=== PATIENT | male | born 1980 | race Caucasian/White ===

== ENCOUNTER 2023-09-04 20:29 | Emergency (ER) | payer OTHER, SELFPAY ==
[2023-09-04] VITALS (21 sets, daily range): BP systolic 130–141; BP diastolic 92–107; PULSE 82–105; TEMP 36.7; O2SAT 98; BMI 38.0
--- NOTE | 2023-09-04 21:19 | ECG_ITS ---
The [facility] Test Date: 2023-09-04 Pat Name: UBALDO KIM Department: Room: - Gender: Male Can Patcher: : 1980 Requested By: MARILYN EDWARDS Order Number: [id number] Reading MD: NICOLE LIMON Measurements Intervals [place] Rate: 100 P: 6 WV: 158 QRS: 14 QRSD: 98 T: -1 QT: 352 QTc: 409 Interpretive Statements 1120 Sinus tachycardia 9140 abnormal rhythm ECG Compared to ECG 06/09/2021 07:01:11 No significant changes Electronically Signed On 09-04-2023 22:41:22 EDT by NICOLE LIMON
--- NOTE | 2023-09-04 21:20 | ED_ITS ---
Documented by User: HAYDER García 09/04/23 21:26 HPI HPI - General Adult General Chief complaint: Arrhythmia/Palpitations Stated complaint: ELECTRIC SHOCK Time Seen by Provider: 09/04/23 21:09 Source: patient Mode of arrival: walk-in History of Present Illness HPI narrative: Patient is a 43-year-old male who presents to the emergency department for a work-related injury. He states he brushed his right index finger against a plug-in at work and sustained a shock to the right finger from a 480 V outlet. He states at the time of the electric shock he felt mild pressure in his chest but he was driving home from work,He felt fluttering in his chest, diaphoretic and weak. He has not had any syncope or falls. He reveals that he had a pulmonary embolism about 10 years ago secondary to Chantix. He denies tobacco abuse at this time. He had no other associated injuries. No medications prior to arrival Related Data Allergies Allergy/AdvReac Type Severity Reaction Status Date / Time varenicline [From Chantix] Allergy Severe Verified 09/04/23 21:03 Opioid HPI Opioid Management Most Recent Opioid Data: No Data to Display Review of Systems ROS Constitutional Denies: fever or chills Ears, nose, mouth, and throat Denies: throat pain or nasal congestion Cardiovascular Reports: chest pain Respiratory Denies: shortness of breath or cough Gastrointestinal Denies: abdominal pain, nausea or vomiting Integumentary/Breast Denies: rash Neurological Denies: headache Hematologic/Lymphatic Denies: easy bruising or easy bleeding Exam Narrative Exam Narrative: Gen.: Awake, alert, in no distress Head: Normocephalic, atraumatic ENT: Moist mucous membranes Respiratory: No respiratory distress, lungs clear bilaterally Cardio: Regular rate and rhythm Extremities: Moves extremities equally, Superficial erythematous burn to the dorsum of the right index finger. No open wounds, necrotic tissue or circumferential swelling. Normal range of motion. 2+ right radial pulse Psych: Normal mood and affect Neuro: No focal neuro deficit Skin: Warm, dry, intact Constitutional Vital Signs, click to edit/add: Last Vital Signs Temp 98.0 F 09/04/23 20:55 Pulse 89 09/04/23 20:55 Resp 16 09/04/23 20:55 BP 130/92 H 09/04/23 20:55 Pulse Ox 98 09/04/23 20:55 O2 Del Method Room Air 09/04/23 20:55 Course Vital Signs Vital signs: Vital Signs Temperature 98.0 F 09/04/23 20:55 Pulse Rate 89 09/04/23 20:55 Respiratory Rate 16 09/04/23 20:55 Blood Pressure 130/92 H 09/04/23 20:55 Pulse Oximetry 98 09/04/23 20:55 Oxygen Delivery Method Room Air 09/04/23 20:55 Temperature 98.0 F 09/04/23 20:55 Pulse Rate 89 09/04/23 20:55 Respiratory Rate 16 09/04/23 20:55 Blood Pressure 130/92 H 09/04/23 20:55 Pulse Oximetry 98 09/04/23 20:55 Oxygen Delivery Method Room Air 09/04/23 20:55 Medical Decision Making MDM Narrative Medical decision making narrative: 2124: Patient with stable vital signs on evaluation, he is in normal sinus rhythm. Due to his history of PE and symptoms, IV was established with lab draw. D-dimer is pending, imaging of the chest will be determined by this result. Case is turned over to attending physician at this time. He is hemodynamically stable at time of my evaluation. Medical Records Medical records reviewed: Yes I reviewed the patient's medical records Lab Data Lab results reviewed: Yes I reviewed the patient's lab results Labs: Lab Results 09/04/23 Range/Units 21:37 WBC 6.4 (4.0-11.0) 10^3/uL RBC 4.69 L (4.70-6.10) 10^6/uL Hgb 13.9 L (14.0-18.0) g/dL Hct 40.6 L (42.0-54.0) % MCV 86.6 (80.0-94.0) fL MCH 29.6 (25.9-34.0) pg MCHC 34.2 (29.9-35.2) g/dL RDW 12.6 (11.0-15.0) % Plt Count 215 (150-450) 10^3/uL MPV 9.7 (9.5-13.5) fL Neut % (Auto) 34.2 L (43.0-75.0) % Lymph % (Auto) 51.9 (20.5-60.0) % [place] % (Auto) 10.0 (1.7-12.0) % Eos % (Auto) 3.1 (0.9-7.0) % Baso % (Auto) 0.6 (0.2-2.0) % Neut # (Auto) 2.2 (1.4-6.5) 10^3/uL Lymph # (Auto) 3.3 (1.2-3.8) 10^3/uL [place] # (Auto) 0.6 (0.3-0.8) 10^3/uL Eos # (Auto) 0.2 (0.0-0.7) 10^3/uL Baso # (Auto) 0.0 (0.0-0.1) 10^3/uL Abs Immat Gran (auto) 0.01 (0.00-0.03) 10^3/uL Imm/Tot Granulo (auto) 0.2 (0.0-0.5) % PT 10.5 (9.0-11.6) sec INR 0.99 D-Dimer 0.40 (<=0.59) mg/L FEU Sodium 142 (136-145) mmol/L Potassium 3.6 (3.5-5.1) mmol/L Chloride 106 (98-107) mmol/L Carbon Dioxide 26.9 (21.0-32.0) mmol/L Anion Gap 12.7 BUN 18.0 (7.0-18.0) mg/dL Creatinine 1.01 (0.70-1.30) mg/dL Est GFR ( Amer) >60 (>=60) Est GFR (Non-Af Amer) >60 (>=60) BUN/Creatinine Ratio 17.8 Glucose 89 (74-106) mg/dL Lactate 1.1 (0.4-2.0) mmol/L Calcium 9.1 (8.5-10.1) mg/dL Total Bilirubin 0.3 (0.2-1.0) mg/dL AST 18 (15-37) U/L ALT 41 (16-63) U/L Alkaline Phosphatase 74 (46-116) U/L Total Creatine Kinase 136 (39-308) U/L Troponin I High Sens 5.1 (4.0-76.1) pg/mL NT-Pro-B Natriuret Pep 17.0 (<=450.0) pg/mL Total Protein 7.4 (6.4-8.2) g/dL Albumin 3.7 (3.4-5.0) g/dL Globulin 3.7 g/dL Albumin/Globulin Ratio 1.0 TSH 3.615 (0.358-3.740) uIU/mL ECG Data Attestation: I personally reviewed and interpreted this ECG as follows: (Sinus tachycardia at a rate of 100, no acute ST elevation or ectopy. EKG reviewed by attending physician) Discharge Plan Discharge Stand Alone Forms: Portal Instructions Chief Complaint: Arrhythmia/Palpitations Clinical Impression: Palpitations, Electric shock Patient Disposition: Home, Self-Care Time of Disposition Decision: 00:15 Condition: Good Print Language: Citizen Of [place] Instructions: Heart Palpitations (ED), Electrical Gruber in Adults (ED) Additional Instructions: Use ice, tylenol and motrin as needed for pain. Return to the ER as needed for ongoing palpitations, shortness of breath, syncope or any concerns. Referrals: Delores Gore NP [Primary Care Provider] - 1 week Documented by User: Jenn Luciano MD 09/05/23 00:16 HPI HPI - General Adult General Chief complaint: Arrhythmia/Palpitations Stated complaint: ELECTRIC SHOCK Time Seen by Provider: 09/04/23 21:09 Related Data Allergies Allergy/AdvReac Type Severity Reaction Status Date / Time varenicline [From Chantix] Allergy Severe Verified 09/04/23 21:03 Opioid HPI Opioid Management Most Recent Opioid Data: No Data to Display Exam Constitutional Vital Signs, click to edit/add: Last Vital Signs Temp 98.0 F 09/04/23 20:55 Pulse 89 09/04/23 20:55 Resp 16 09/04/23 20:55 BP 130/92 H 09/04/23 20:55 Pulse Ox 98 09/04/23 20:55 O2 Del Method Room Air 09/04/23 20:55 Course Vital Signs Vital signs: Vital Signs Temperature 98.0 F 09/04/23 20:55 Pulse Rate 89 09/04/23 20:55 Respiratory Rate 16 09/04/23 20:55 Blood Pressure 130/92 H 09/04/23 20:55 Pulse Oximetry 98 09/04/23 20:55 Oxygen Delivery Method Room Air 09/04/23 20:55 Temperature 98.0 F 09/04/23 20:55 Pulse Rate 89 09/04/23 20:55 Respiratory Rate 16 09/04/23 20:55 Blood Pressure 130/92 H 09/04/23 20:55 Pulse Oximetry 98 09/04/23 20:55 Oxygen Delivery Method Room Air 09/04/23 20:55 Medical Decision Making [facility] Narrative Medical decision making narrative: 2124: Patient with stable vital signs on evaluation, he is in normal sinus rhythm. Due to his history of PE and symptoms, IV was established with lab draw. D-dimer is pending, imaging of the chest will be determined by this result. Case is turned over to attending physician at this time. He is hemodyn amically stable at time of my evaluation. Labs are reviewed and are normal including troponin, d dimer, electrolytes and CBC with diff. X-ray of the chest is negative for acute findings. Patient was seen and evaluated. He is hemodynamically stable with no arrhythmia or ectopy on the monitor. He does have a small area of redness where he was electrocuted on the right index finger. He states that his hand is bothering him is swollen. He will be medicated with a dose of Toradol and monitored until he feels comfortable being discharged home. I did explain to him that all of his labs are normal and there should not be any ongoing cardiac dysrhythmia related to the brief electrical event he experienced. 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 Medical Records Medical records narrative: The [address] [address] XRay Report Signed Patient: UBALDO KIM MR#: [id number] : 1980 Acct:[id number] Age/Sex: 43 / M ADM Date: 09/04/23 Loc: ER Attending Dr: Ordering Physician: Jenn Luciano Date of Service: 09/04/23 Procedure(s): XR chest 2V Accession Number(s): [id number] cc: Delores Gore [employer]; Jenn Marker~ The [address] [address] Patient Name: UBALDO KIM MRN: [id number] date: 1980 Sex: M Assigned Patient Location: ER Current Patient Location: ER Accession/Order Number: [id number] Exam Date: 09/04/2023 23:05 Report Date: 09/04/2023 23:34 At the request of: JENN MARKER Procedure: XR chest 2V EXAM: XR chest 2V HISTORY: CP COMPARISON: Chest radiograph dated 01/19/2022. TECHNIQUE: 2 views of the chest were obtained. FINDINGS: The cardiac silhouette is stable in size. The lungs are clear. There is no significant pneumothorax or pleural effusion. No acute osseous abnormality is seen. XR/XR chest 2V IMPRESSION: 1. No acute cardiopulmonary abnormality. Electronically authenticated by: Lexi DUNCAN Date: 09/04/2023 23:34 Lab Data Labs: Lab Results 09/04/23 Range/Units 21:37 WBC 6.4 (4.0-11.0) 10^3/uL RBC 4.69 L (4.70-6.10) 10^6/uL Hgb 13.9 L (14.0-18.0) g/dL Hct 40.6 L (42.0-54.0) % MCV 86.6 (80.0-94.0) fL MCH 29.6 (25.9-34.0) pg MCHC 34.2 (29.9-35.2) g/dL RDW 12.6 (11.0-15.0) % Plt Count 215 (150-450) 10^3/uL MPV 9.7 (9.5-13.5) fL Neut % (Auto) 34.2 L (43.0-75.0) % Lymph % (Auto) 51.9 (20.5-60.0) % [place] % (Auto) 10.0 (1.7-12.0) % Eos % (Auto) 3.1 (0.9-7.0) % Baso % (Auto) 0.6 (0.2-2.0) % Neut # (Auto) 2.2 (1.4-6.5) 10^3/uL Lymph # (Auto) 3.3 (1.2-3.8) 10^3/uL [place] # (Auto) 0.6 (0.3-0.8) 10^3/uL Eos # (Auto) 0.2 (0.0-0.7) 10^3/uL Baso # (Auto) 0.0 (0.0-0.1) 10^3/uL Abs Immat Gran (auto) 0.01 (0.00-0.03) 10^3/uL Imm/Tot Granulo (auto) 0.2 (0.0-0.5) % PT 10.5 (9.0-11.6) sec INR 0.99 D-Dimer 0.40 (<=0.59) mg/L FEU Sodium 142 (136-145) mmol/L Potassium 3.6 (3.5-5.1) mmol/L Chloride 106 (98-107) mmol/L Carbon Dioxide 26.9 (21.0-32.0) mmol/L Anion Gap 12.7 BUN 18.0 (7.0-18.0) mg/dL Creatinine 1.01 (0.70-1.30) mg/dL Est GFR ( Amer) >60 (>=60) Est GFR (Non-Af Amer) >60 (>=60) BUN/Creatinine Ratio 17.8 Glucose 89 (74-106) mg/dL Lactate 1.1 (0.4-2.0) mmol/L Calcium 9.1 (8.5-10.1) mg/dL Total Bilirubin 0.3 (0.2-1.0) mg/dL AST 18 (15-37) U/L ALT 41 (16-63) U/L Alkaline Phosphatase 74 (46-116) U/L Total Creatine Kinase 136 (39-308) U/L Troponin I High Sens 5.1 (4.0-76.1) pg/mL NT-Pro-B Natriuret Pep 17.0 (<=450.0) pg/mL Total Protein 7.4 (6.4-8.2) g/dL Albumin 3.7 (3.4-5.0) g/dL Globulin 3.7 g/dL Albumin/Globulin Ratio 1.0 TSH 3.615 (0.358-3.740) uIU/mL Discharge Plan Discharge Stand Alone Forms: Portal Instructions Chief Complaint: Arrhythmia/Palpitations Clinical Impression: Palpitations, Electric shock Patient Disposition: Home, Self-Care Time of Disposition Decision: 00:15 Condition: Good Print Language: Citizen Of [place] Instructions: Heart Palpitations (ED), Electrical Gruber in Adults (ED) Additional Instructions: Use ice, tylenol and motrin as needed for pain. Return to the ER as needed for ongoing palpitations, shortness of breath, syncope or any concerns. Referrals: Delores Gore NP [Primary Care Provider] - 1 week
[2023-09-04] MEDS: 0.9 % SODIUM CHLORIDE 1,000 ML 999 ML IV (21:46)
[2023-09-04 21:50] LABS: Basophils Percent Auto 0.6 % (0.2-2.0); Eosinophils Absolute Auto 0.2 10^3/uL (0.0-0.7); Eosinophils Percent Auto 3.1 % (0.9-7.0); Hematocrit 40.6 % (42.0-54.0); Hemoglobin 13.9 g/dL (14.0-18.0); Immature Granulocytes Abs Auto 0.01 10^3/uL (0.00-0.03); Immature Granulocytes Pct Auto 0.2 % (0.0-0.5); Lymphocytes Absolute Auto 3.3 10^3/uL (1.2-3.8); Lymphocytes Percent Auto 51.9 % (20.5-60.0); Mean Corpuscular HGB Conc 34.2 g/dL (29.9-35.2); Mean Corpuscular Hemoglobin 29.6 pg (25.9-34.0); Mean Corpuscular Volume 86.6 fL (80.0-94.0); Mean Platelet Volume 9.7 fL (9.5-13.5); Monocytes Absolute Auto 0.6 10^3/uL (0.3-0.8); Neutrophils Absolute Auto 2.2 10^3/uL (1.4-6.5); Neutrophils Percent Auto 34.2 % (43.0-75.0); Platelet Count 215 10^3/uL (150-450); Red Blood Count 4.69 10^6/uL (4.70-6.10); Red Cell Distribution Width 12.6 % (11.0-15.0); White Blood Count 6.4 10^3/uL (4.0-11.0)
[2023-09-04 22:03] LABS: INR 0.99; Prothrombin Time 10.5 sec (9.0-11.6)
[2023-09-04 22:11] LABS: Lactate/Lactic Acid 1.1 mmol/L (0.4-2.0)
[2023-09-04 22:17] LABS: Alanine Aminotransferase 41 U/L (16-63); Albumin Level 3.7 g/dL (3.4-5.0); Alkaline Phosphatase 74 U/L (46-116); Anion Gap 12.7; Aspartate Amino Transferase 18 U/L (15-37); BUN Creatinine Ratio 17.8; Bilirubin Total 0.3 mg/dL (0.2-1.0); Calcium 9.1 mg/dL (8.5-10.1); Carbon Dioxide 26.9 mmol/L (21.0-32.0); Chloride 106 mmol/L (98-107); Creatine Kinase 136 U/L (39-308); Estimated GFR (African America >60 (>=60); Estimated GFR (Non-African Ame >60 (>=60); Globulin 3.7 g/dL; Glucose 89 mg/dL (74-106); Potassium 3.6 mmol/L (3.5-5.1); Sodium 142 mmol/L (136-145); Thyroid Stimulating Hormone 3.615 uIU/mL (0.358-3.740); Total Protein 7.4 g/dL (6.4-8.2); Troponin I High Sensitivity 5.1 pg/mL (4.0-76.1)
--- NOTE | 2023-09-04 22:18 | XR_ITS ---
The [address] [address] Patient Name: UBALDO KIM MRN: [id number] date: 1980 Sex: M Assigned Patient Location: ER Current Patient Location: ER Accession/Order Number: [id number] Exam Date: 09/04/2023 23:05 Report Date: 09/04/2023 23:34 At the request of: ANGELITA MARKER Procedure: XR chest 2V EXAM: XR chest 2V HISTORY: CP COMPARISON: Chest radiograph dated 01/19/2022. TECHNIQUE: 2 views of the chest were obtained. FINDINGS: The cardiac silhouette is stable in size. The lungs are clear. There is no significant pneumothorax or pleural effusion. No acute osseous abnormality is seen. XR/XR chest 2V IMPRESSION: 1. No acute cardiopulmonary abnormality. Electronically authenticated by: Lexi DUNCAN Date: 09/04/2023 23:34
[2023-09-04] MEDS: KETOROLAC TROMETHAMINE 30 MG/ML VIAL IVP (23:48)
[2023-09-05] VITALS: PULSE 84
[2023-09-05 00:10] VITALS: PULSE 86
== END 2023-09-05 00:24 | disposition home or self-care (01) ==
PROVIDERS: Physician Assistant; Emergency Provider Emergency Medicine; PCP Nurse Practitioner
DX: T75.4XXA Electrocution, initial encounter (principal); R00.2 Palpitations; W86.1XXA Exposure to industrial wiring, appliances and electrical machinery, initial encounter
CPT/HCPCS: 36415; 71046; 80053; 82550; 83605; 83880; 84443; 84484; 85025; 85378; 85610; 93005; 96374; 99285